=== PATIENT | male | born 1960 | race Caucasian/White ===

== ENCOUNTER 2021-09-18 00:48 | Emergency (ER) | payer OTHER, SELFPAY ==
[2021-09-18] MEDS ORDERED: Boostrix 0.5 ML (Tdap) VIAL ONE (01:37)
== END 2021-09-18 06:20 | disposition home or self-care (01) ==
LOC: ERS 00:48
DX: S01.01XA Laceration without foreign body of scalp, initial encounter (principal); I10 Essential (primary) hypertension; B20 Human immunodeficiency virus [HIV] disease; W01.10XA Fall on same level from slipping, tripping and stumbling with subsequent striking against unspecified object, initial encounter; Z23 Encounter for immunization
CPT/HCPCS: 12002; 70450; 72125; 90471; 90715

== ENCOUNTER 2021-09-25 15:09 | Emergency (ER) | payer SELFPAY | END 2021-09-25 15:27 | disposition home or self-care (01) | LOC: ERS 15:09 | DX: S01.01XD Laceration without foreign body of scalp, subsequent encounter (principal); Z48.02 Encounter for removal of sutures; I10 Essential (primary) hypertension ==

== ENCOUNTER 2024-12-13 07:28 | Emergency (ER) | payer OTHER ==
[2024-12-13] MEDS ORDERED: fentaNYL 50 mcg/mL 1 mL Vial ONE (08:05)
== END 2024-12-13 11:48 ==
LOC: ERS 07:28
DX: Z43.1 Encounter for attention to gastrostomy (principal); I10 Essential (primary) hypertension; Z79.899 Other long term (current) drug therapy
CPT/HCPCS: 74018; 96372; 99283; J3010